=== PATIENT | female | born 1945 | race Two or more races ===

== ENCOUNTER 2019-02-15 11:29 | Outpatient (CLI) | payer OTHER | END 2019-02-15 11:37 | disposition home or self-care (01) | LOC: MAMO-SONO 11:29 | DX: N60.21 Fibroadenosis of right breast (principal); N60.22 Fibroadenosis of left breast; N64.4 Mastodynia; Z12.31 Encounter for screening mammogram for malignant neoplasm of breast; Z87.898 Personal history of other specified conditions ==